=== PATIENT | female | born 1960 | race Caucasian/White ===

== ENCOUNTER 2016-10-23 13:22 | Emergency (ER) | payer MEDICARE, MEDICAID ==
[~2016-10-23] VITALS: Ht 170.2 cm; Wt 72.0 kg
[2016-10-23] MEDS ORDERED: SERTRALINE50 MG PO (13:45)
[2016-10-23] MEDS ORDERED: DEPAKOTE250 MG PO (13:45)
[2016-10-23] MEDS ORDERED: OLANZAPINE5 MG PO (13:46)
[2016-10-23] MEDS ORDERED: LITHIUM CARB300 MG PO (13:46)
[2016-10-23] MEDS ORDERED: MOTRIN800 MG PO (14:20)
[2016-10-23 14:41] VITALS: BP 125/77
== END 2016-10-23 14:50 | disposition home or self-care (01) ==
LOC: ED 13:22
PROC: 2W3DX1Z Immobilization of Left Lower Arm using Splint (ICD-10-PCS; principal; 2016-10-23)
DX: S52.515A Nondisplaced fracture of left radial styloid process, initial encounter for closed fracture (principal); W01.0XXA Fall on same level from slipping, tripping and stumbling without subsequent striking against object, initial encounter; Y93.H2 Activity, gardening and landscaping; Y92.007 Garden or yard of unspecified non-institutional (private) residence as the place of occurrence of the external cause; G80.9 Cerebral palsy, unspecified; F79 Unspecified intellectual disabilities

== ENCOUNTER 2018-06-30 12:47 | Observation (INO) | payer MEDICARE, MEDICAID ==
[~2018-06-30] VITALS: Ht 170.2 cm; Wt 65.0 kg
[~2018-06-30 12:47] MED LIST: DEPAKOTE250 MG PO; LITHIUM CARB300 MG PO; MOTRIN800 MG PO; OLANZAPINE5 MG PO; SERTRALINE50 MG PO
[2018-06-30 13:00] VITALS: BP 166/91
--- NOTE | 2018-06-30 13:09 | NUR ---
PT ARRIVED ON FLOOR @1305, VIA WC ACCOMPANIED BY FAMILY MEMBERS; PT A/O X3; PT RESONDS TO QUESTIONS WITH A DELAYED RESPONSE AND SOMETIMES TALKS A LOT DUE TO HER MEDICAL HISTORY; CREBRAL PALSY; PT VERY PLESANT; RESP EVEN AND UNLABORED; PT ASSISTED TO STANDING SCALE WITH STEADY GAIT; VITALS OBTAINED; PT ORIENT TO ROOM AND CALL BUCIO SYSTEM;
--- NOTE | 2018-06-30 13:54 | NUR ---
PT. DOWN VIA W/C FOR ULTRASOUND AND XRAY. IV PLACED PRIOR TO PT. GOING DOWN. FAMILY MEMBER WITH PT. WELL.
--- NOTE | 2018-06-30 14:40 | NUR ---
PT RETURNED TO FLOOR VIA WC, ACCOMPANIED BY FAMILY MEMBER AND A VOLUNTEER; PT VOIDED 75CC OF CLEAR YELLOW URINE.
--- NOTE | 2018-06-30 15:40 | NUR ---
PT LAYING IN BED WITH HOB ELEVATED; FAMILY MEMBER PRESENT; BOTH WATCHING TV; PT VOICED NO CONCERNS; NO ACUTE CHANGES NOTED; CALL BUCIO IN REACH.
[2018-06-30 16:05] VITALS: BP 157/93
[2018-06-30 16:15] LABS: HEMATOCRIT 30.4 % (37.0-47.0); HEMOGLOBIN 9.1 g/dl (12.0-16.0); IMMATURE GRANULOCYTES 0.7 % (0.0-5.0); MEAN CELL VOLUME 104.5 fL CALC (80.0-100.0); MEAN CORPUSCULAR HGB 31.3 pG CALC (26.0-32.0); MEAN CORPUSCULAR HGB CONC 29.9 g/L CALC (32.0-36.0); NEUT# 2.76 thou/uL (2.00-7.15); RED BLOOD COUNT 2.91 mill/uL (4.20-5.60); RED CELL DISTRI WIDTH 14.3 % (11.5-15.5)
[2018-06-30 16:24] LABS: URINE BILIRUBIN - DIPSTICK NEGATIVE (NEGATIVE); URINE BLOOD DIPSTICK LARGE (NEGATIVE); URINE COLOR YELLOW; URINE GLUCOSE - DIPSTICK NEGATIVE (NEGATIVE); URINE KETONE NEGATIVE (NEGATIVE); URINE LEUK ESTERASE NEGATIVE (NEGATIVE); URINE NITRITE - DIPSTICK NEGATIVE (Negative); URINE PH 6.5 (4.5-8.0); URINE PROTEIN - DIPSTICK 30 mg/dL (NEG-TRACE); URINE UROBILINOGEN - DIPSTICK 0.2 E.U./dL (0.2)
[2018-06-30 16:36] LABS: CREATININE 1.9 mg/dL (0.5-1.0)
--- NOTE | 2018-06-30 16:45 | NUR ---
TOOK PT DOWN FOR CT ABD, VIA WC, ACCOMPANIED BY FAMILY MEMBER.
[2018-06-30 16:49] LABS: URINE CLARITY CLEAR; URINE SQUAMOUS EPITHELIAL CELL FEW EPI/hpf (0-FEW); URINE WBC 0-2 WBC/hpf (0-5)
[2018-06-30 16:50] LABS: POTASSIUM 5.6 mmol/l (3.5-5.1)
--- NOTE | 2018-06-30 17:00 | NUR ---
PT RETURNED TO FLOOR VIA WC ACCOMPANIED BY FAMILY MEMBER; PT ASSISTED BACK TO BED; CALL BUCIO IN REACH.
[2018-06-30 19:20] VITALS: BP 169/81
--- NOTE | 2018-06-30 20:29 | NUR ---
ASSESSMENT IS COMPLETED: IV SITE IS FREE FROM REDNESS OR EDEMA. HR IS IRREGULAR AND FAST. BREATH SOUNDS ARE WHEEZING NOTED. . TELE MONITOR IN PLACE. FAMILY IN THE ROOM. PT C/O ABD PAIN. ASKING FOR MEDICATION TO ASSIST WITH SLEEP. CONITNUE TO THIERNO.
--- NOTE | 2018-06-30 23:40 | NUR ---
PT WAS RESTING WITH EYES CLOSED. 1 LEAD CAME OFF WILL RECHECK WITH VS. FAMILY IN THE ROOM.
[2018-07-01] VITALS (12 sets, daily range): BP systolic 147–177; BP diastolic 80–108
--- NOTE | 2018-07-01 00:20 | NUR ---
PT IS RESTING WITH EYES CLOSED. IV SITE IS FREE FROM REDNESS OR EDEMA. FAMILY REMAINS IN THE ROOM. CONITNUE TO [place]BERVE AND MONITOR.
--- NOTE | 2018-07-01 04:20 | NUR ---
PT HAS BEEN RESTING WITH EYES CLOSED. NO DISTRESS NOTED. IV SITE IS FREE FROM REDNESS OR EDEMA.
[2018-07-01 06:02] LABS: HEMATOCRIT 27.5 % (37.0-47.0); HEMOGLOBIN 8.4 g/dl (12.0-16.0); IMMATURE GRANULOCYTES 0.7 % (0.0-5.0); MEAN CELL VOLUME 103.8 fL CALC (80.0-100.0); MEAN CORPUSCULAR HGB 31.7 pG CALC (26.0-32.0); MEAN CORPUSCULAR HGB CONC 30.5 g/L CALC (32.0-36.0); NEUT# 3.18 thou/uL (2.00-7.15); RED BLOOD COUNT 2.65 mill/uL (4.20-5.60); RED CELL DISTRI WIDTH 14.2 % (11.5-15.5)
[2018-07-01 06:18] LABS: BILIRUBIN, TOTAL 0.2 mg/dL (0.0-1.4); CREATININE 1.6 mg/dL (0.5-1.0)
[2018-07-01 06:22] LABS: ALBUMIN 2.5 g/dL (3.2-5.0); POTASSIUM 5.3 mmol/l (3.5-5.1); TOTAL PROTEIN 4.9 g/dL (6.3-8.2)
--- NOTE | 2018-07-01 07:10 | NUR ---
PT REPORT RECIEVED FROM MIKE CASTAÑEDA. PT SLEEPING, NO S/S OF DISTRESS. CALL LIGHT IN REACH. WILL CONTINUE TO MONITOR
--- NOTE | 2018-07-01 08:00 | NUR ---
PT ASSESSMENT COMPLETE. PT A/O X3. SPEECH IS CLEAR. RESP EVEN AND UNLABORED. SLIGHT WHEEZING NOTED TO ALL LOBES. TELE IN PLACE. O2 @2L ON PT. BOWEL SOUNDS ACTIVE X4. STRONG RADIAL AND PEDAL PULSES. #22 RFA D5 1/2 NS @125. SITE APPEARS HEALTHY. PT HAS +3 EDEMA TO BLE. ENCOURAGED ELEVATION ON PILLOWS. SKIN INTACT. PT DENIES ANY PAIN OR NEEDS. POC DISCUSSED. SAFETY PRECAUTIONS IN PLACE. CALL LIGHT IN REACH. WILL CONTINUE TO MONITOR
--- NOTE | 2018-07-01 10:29 | NUR ---
PT TRANSPORTED TO ULTRASOUND VIA WHEELCHAIR ACCOMPIANED BY VOLUNTEERS IN STABLE CONDITION
--- NOTE | 2018-07-01 10:35 | NUR ---
PT TRANSPORTED BACK FROM [place] VIA WHEELCHAIR ACCOMPINAED BY VOLUNTEER IN STABLE CONDITION
--- NOTE | 2018-07-01 12:00 | NUR ---
PT AND FAMILY INFORMED OF PRBC PROCEDURE. CONSENT SIGNED. BOTH PT AND FAMILY STATES UNDERSTANDING. IV CATHETER TO RW PATENT. NS HANGING. PRBC INFUSION STARTED. PT TOLERATING WELL. WILL CONTINUE TO MONITOR.
--- NOTE | 2018-07-01 12:15 | NUR ---
VS CHECKED. PT DENIES ANY SYMPTOMS AT THIS TIME. PRBC INFUSING FREELY. IV TO RW STILL PATENT. FAMILY AT BEDSIDE. CALL LIGHT IN REACH. WILL CONTINUE TO MONITOR.
--- NOTE | 2018-07-01 13:13 | NUR ---
DR RITCHIE CALLED TO INQUIRE ABOUT ANY VISIBLE BLEEDING FROM PT, PARENT ASKED AND DENIED BLEEDING OF ANY KIND.
--- NOTE | 2018-07-01 13:37 | NUR ---
PT HAD EPISODE VOMITUS, DR RITCHIE NOTIFIED AND GAVE VERBAL ORDER WHICH WAS PROCESSED.
--- NOTE | 2018-07-01 15:06 | NUR ---
IV TO RW PATENT. NS FLOWING FREELY. SECOND UNIT OF PRBCS HUNG. PT TOLERATING WELL. WILL CONTINUE TO MONITOR
--- NOTE | 2018-07-01 16:00 | NUR ---
PT SITTING UP IN BED WATCHING TELEVISION AND WORKING IN HER BOOK. PT DENIES ANY PAIN OR NEEDS. CALL LIGHT IN REACH. FAMILY AT BEDSIDE. WILL CONTINUE TO MONITOR
--- NOTE | 2018-07-01 19:30 | NUR ---
BEDSIDE REPORT RECEIVED FROM MIKE PORTILLO. PT RESTING IN BED SEMI FOWLERS WITH MOTHER AT BEDSIDE; ALERT AND ORIENTED. PT TALKS A LOT AND QUICKLY; SEEMS ANXIOUS. BREATHING IS SHALLOW AND SLIGHTLY LABORED; PT ENCOURAGED TO RELAX OXYGEN PLACED VIA NC; PT STATES THAT SHE FEELS LIKE THE OXYGEN IS CHOKING HER AND REMOVED IT. SATURATIONS ARE GOOD; EDUCATED ON EFFECTIVE BREATHING TECHNIQUES. ASSISTED TO BSC X 1 PERSON ASSIST TO VOID. LUHGS ARE CLEAR, 4+ EDEMA TO GAGAN FEET; ELEVATED ON 2 PILLOWS. DENIES PAIN. PLAN OF CARE REVIEWED WITH PT AND MOTHER. ENCOURAGED TO VERBLIZE CONCERNS. STATES UNDERSTANDING. SAFETY MEASURES IN PLACE. CALL LIGHT WITHIN REACH.
--- NOTE | 2018-07-01 21:00 | NUR ---
PT ASKED IF SHE WANTS AND HS SNACK AND SHE REPLIES, "MOM, WHAT DO YOU THINK?" WHEN ENCOURAGED TO TRY TO GET SOME REST PT RAMBLES AND DOES NOT MAKE SENSE. SHE STATES, "I WILL SOON THE CARS STOP ALARMING AND THE AIRPLANES DON'T." PT AND MOM DECLINED 2300 BREATHING TREATMENT IF SHE IS ASLEEP WITH EVEN AND UNLABORED RESPIRATIONS. WILL CONTINUE TO MONITOR.
[2018-07-02] VITALS: BP 156/95
--- NOTE | 2018-07-02 | NUR ---
PT ASLEEP AT THIS TIME WITH NO SIGNS OF DISTRESS. RESPIRATIONS EVEN AND UNLABORED ON ROOM AIR. SOLUMEDROL GIVEN AT THIS TIME. MOTHER REMAINS AT BEDSIDE. IV FLUIDS INFUSING WITHOUT DIFFICULTY; IV SITE APPEARS HEALTHY. PT TRANSFERS TO BSC WITH ONE PERSON ASSIST. SAFETY MEASURES IN PLACE. CALL LIGHT WITHIN REACH.
[2018-07-02 04:00] VITALS: BP 150/99
--- NOTE | 2018-07-02 04:32 | NUR ---
PT ASLEEP AT THIS TIME WITH NO SIGNS OF DISTRESS. RESPIRATIONS EVEN AND UNLABORED ON ROOM AIR. NO ACUTE CHANGES IN CONDITION THROUGHOUT THE NIGHT. SAFETY MEASURES IN PLACE. CALL LIGHT WITHIN REACH.
[2018-07-02 05:09] LABS: IMMATURE GRANULOCYTES 1.2 % (0.0-5.0); MEAN CORPUSCULAR HGB 30.8 pG CALC (26.0-32.0); MEAN CORPUSCULAR HGB CONC 32.7 g/L CALC (32.0-36.0); NEUT# 4.69 thou/uL (2.00-7.15); RED BLOOD COUNT 3.64 mill/uL (4.20-5.60); RED CELL DISTRI WIDTH 16.5 % (11.5-15.5)
[2018-07-02 05:11] LABS: HEMOGLOBIN 11.2 g/dl (12.0-16.0)
[2018-07-02 05:12] LABS: HEMATOCRIT 34.2 % (37.0-47.0)
[2018-07-02 05:20] LABS: ALBUMIN 2.4 g/dL (3.2-5.0); BILIRUBIN, TOTAL 0.4 mg/dL (0.0-1.4); CREATININE 1.4 mg/dL (0.5-1.0); POTASSIUM 4.7 mmol/l (3.5-5.1); TOTAL PROTEIN 4.7 g/dL (6.3-8.2)
[2018-07-02 07:39] VITALS: BP 147/98
--- NOTE | 2018-07-02 08:05 | NUR ---
DR. RITCHIE AT BEDSIDE TO ASSESS PT. PT MOM IN ROOM. ASSESSMENT DONE. TELE IN PLACE. #22 RFA THAT APPEARS HEALTHY. LUNGS SOUND CLEAR/DIMINSHED. PT DENIES PAIN. PT IS ANXIOUS ENCOURAGE PT TO TAKE SOME DEEP BREATHS PT VERBALIZED UNDERSTANDING . PT DENIES NEEDS. SAFETY PRECAUTIONS REINFORCED AND CALL LIGHT IN REACH.
[2018-07-02] MEDS ORDERED: POT CHLORIDE10 ME1 PO (08:35)
[2018-07-02] MEDS ORDERED: ALPRAZOLAM0.5 MG PO (08:35)
[2018-07-02] MEDS ORDERED: LASIX 40 MG TAB40 MG PO (08:35)
[2018-07-02] MEDS ORDERED: Levaquin PO (08:35)
--- NOTE | 2018-07-02 10:25 | NUR ---
Discharge instructions given. Patient verbalizes understanding of same. Discharged in stable condition via Wheelchair to Home with family. All belongings sent with pt.
== END 2018-07-02 10:22 | disposition home or self-care (01) ==
LOC: MS2 12:47
PROVIDERS: ADMIT Internal Medicine Geriatric Medicine; ATTEND Internal Medicine Geriatric Medicine
PROC: 30233N1 Transfusion of Nonautologous Red Blood Cells into Peripheral Vein, Percutaneous Approach (ICD-10-PCS; principal; 2018-07-01)
PROC: 30233N1 Transfusion of Nonautologous Red Blood Cells into Peripheral Vein, Percutaneous Approach (ICD-10-PCS; 2018-07-01)
DX: D61.818 Other pancytopenia (principal); E87.5 Hyperkalemia; F79 Unspecified intellectual disabilities; G80.9 Cerebral palsy, unspecified; R31.9 Hematuria, unspecified; K80.20 Calculus of gallbladder without cholecystitis without obstruction; R06.02 Shortness of breath; R06.2 Wheezing
CPT/HCPCS: P9016

== ENCOUNTER → 2018-09-07 | Outpatient (REF) | payer MEDICARE, MEDICAID ==
[~2018-09-07] MED LIST changes: +ALPRAZOLAM0.5 MG PO; +LASIX 40 MG TAB40 MG PO; +Levaquin PO; +POT CHLORIDE10 ME1 PO
[2018-09-07 08:33] LABS: HEMATOCRIT 25.8 % (37.0-47.0); HEMOGLOBIN 8.6 g/dl (12.0-16.0); IMMATURE GRANULOCYTES 0.4 % (0.0-5.0); MEAN CELL VOLUME 95.2 fL CALC (80.0-100.0); MEAN CORPUSCULAR HGB 31.7 pG CALC (26.0-32.0); MEAN CORPUSCULAR HGB CONC 33.3 g/L CALC (32.0-36.0); NEUT# 1.59 thou/uL (2.00-7.15); RED BLOOD COUNT 2.71 mill/uL (4.20-5.60); RED CELL DISTRI WIDTH 13.7 % (11.5-15.5)
[2018-09-07 09:08] LABS: CREATININE 1.8 mg/dL (0.5-1.0); POTASSIUM 4.6 mmol/l (3.5-5.1)
== END | disposition home or self-care (01) ==
LOC: LAB 08:03
PROVIDERS: ATTEND Internal Medicine Geriatric Medicine
DX: I10 Essential (primary) hypertension (principal)

== ENCOUNTER 2018-09-15 08:15 | Outpatient (RCR) | payer MEDICARE, MEDICAID ==
[2018-09-15 09:06] VITALS: BP 128/69
[2018-09-15 10:00] VITALS: BP 135/83
[2018-09-15 11:20] VITALS: BP 147/85
[2018-09-15 11:44] VITALS: BP 136/82
[2018-09-15 12:33] VITALS: BP 139/67
== END 2018-09-15 13:00 | disposition home or self-care (01) ==
LOC: INF 08:15
PROVIDERS: ATTEND Internal Medicine Geriatric Medicine
PROC: 30233P1 Transfusion of Nonautologous Frozen Red Cells into Peripheral Vein, Percutaneous Approach (ICD-10-PCS; principal; 2018-09-15)
PROC: 30233P1 Transfusion of Nonautologous Frozen Red Cells into Peripheral Vein, Percutaneous Approach (ICD-10-PCS; 2018-09-15)
DX: D64.9 Anemia, unspecified (principal)
CPT/HCPCS: P9016

== ENCOUNTER → 2018-10-11 | Outpatient (REF) | payer MEDICARE, MEDICAID ==
[2018-10-11 09:32] LABS: HEMATOCRIT 30.8 % (37.0-47.0); HEMOGLOBIN 9.8 g/dl (12.0-16.0); IMMATURE GRANULOCYTES 0.8 % (0.0-5.0); MEAN CELL VOLUME 92.8 fL CALC (80.0-100.0); MEAN CORPUSCULAR HGB 29.5 pG CALC (26.0-32.0); MEAN CORPUSCULAR HGB CONC 31.8 g/L CALC (32.0-36.0); NEUT# 2.23 thou/uL (2.00-7.15); RED BLOOD COUNT 3.32 mill/uL (4.20-5.60); RED CELL DISTRI WIDTH 13.3 % (11.5-15.5)
[2018-10-11 10:11] LABS: ALBUMIN 3.8 g/dL (3.2-5.0); BILIRUBIN, TOTAL 0.3 mg/dL (0.0-1.4); CREATININE 2.1 mg/dL (0.5-1.0); TOTAL PROTEIN 6.5 g/dL (6.3-8.2)
[2018-10-11 10:21] LABS: POTASSIUM 5.2 mmol/l (3.5-5.1)
== END | disposition home or self-care (01) ==
LOC: LAB 08:36
PROVIDERS: ATTEND Internal Medicine Hematology & Oncology
DX: D64.9 Anemia, unspecified (principal); D47.2 Monoclonal gammopathy; D70.9 Neutropenia, unspecified; D69.49 Other primary thrombocytopenia; M25.50 Pain in unspecified joint; R53.82 Chronic fatigue, unspecified